=== PATIENT | male | born 1965 | race Caucasian/White ===

== ENCOUNTER 2024-03-27 13:01 | Observation (INO) | payer OTHER, SELFPAY ==
[2024-03-27] MEDS ORDERED: Mag-Al 1200 mg/1200 mg/30 ML UDCUP ONE (13:41)
[2024-03-27] MEDS ORDERED: Lidocaine Viscous Sol 2% 15 ml UD Cup ONE (13:41)
[2024-03-27 13:56] LABS: #Basophils Less than 0.03 10x3/uL (0.0-0.2); #Eosinophils Less than 0.03 10x3/uL (0.0-0.7); %Basophils 0.3 % (0.0-1.0); %Eosinophils 0.3 % (0.0-10.0); %Lymphocytes 9.4 % (21.0-51.0); %Monocytes 5.9 % (0.0-10.0); %Neutrophils 83.6 % (42.0-75.0); Hematocrit 43.8 % (42.0-52.0); Hemoglobin 15.3 g/dL (14.0-18.0); Mean Corpuscular HGB CONC 34.9 g/dL (32.0-36.0); Mean Corpuscular Hemoglobin 32.6 pg (27.0-31.0); Mean Corpuscular Volume 93.2 fL (78.0-98.0); Mean Platelet Volume 9.4 fL (7.4-10.4); Platelet Count 257 10x3/uL (130-400); RBC Distribution Width 12.5 % (11.5-14.5)
[2024-03-27 14:11] LABS: ALT (SGPT) 23 U/L (8-55); AST (SGOT) 17 U/L (5-34); Albumin 3.9 g/dL (3.5-5.0); Alkaline Phosphatase 62 U/L (40-110); Anion Gap 14 mmol/L (10-20); BUN (Urea Nitrogen) 17 mg/dL (8.4-25.7); Bilirubin, Total 0.4 mg/dL (0.2-1.2); Calc. Creatinine Clearance 0 mL/min (70-130); Calcium 9.6 mg/dL (7.8-10.44); Carbon Dioxide 22 mmol/L (22-29); Chloride 104 mmol/L (98-107); Estimated GFR 77; Globulin 3.6 g/dL (2.4-3.5); Glucose 130 mg/dL (70-105); Lipase 17 U/L (8-78); Potassium 3.6 mmol/L (3.5-5.1); Protein, Total 7.5 g/dL (6.0-8.3); Sodium 136 mmol/L (136-145)
[2024-03-27 14:16] LABS: Troponin I Less than 0.010 ng/mL (< 0.028)
[2024-03-27 18:28] LABS: Troponin I Less than 0.010 ng/mL (< 0.028)
[2024-03-27 20:02] LABS: Troponin I Less than 0.010 ng/mL (< 0.028)
[2024-03-27] MEDS ORDERED: Nitroglycerin 0.4 MG TAB (25 Tab Bottle) SL PRN (20:44)
[2024-03-27] MEDS: Aspirin Chewable 81 MG TAB PO SCH (21:36)
[2024-03-28 04:19] VITALS: BMI 31.4
[2024-03-28] MEDS: Aspirin Chewable 81 MG TAB PO SCH (08:22)
[2024-03-28] MEDS: Enoxaparin 40 MG (0.4 mL) SYRINGE SC SCH (08:22)
[2024-03-28] MEDS ORDERED: hydrALAZINE 20 MG/ML VIAL SLOW IVP PRN (08:37)
[2024-03-28] MEDS ORDERED: Regadenoson 0.4 MG/5 ML SYRINGE ONE (11:55)
[2024-03-28 12:28] VITALS: TEMP 97.9
[2024-03-28 14:01] VITALS: BP 156/82
== END 2024-03-28 15:15 | disposition home or self-care (01) ==
LOC: ERS 13:01 → 2NO 17:11
PROVIDERS: ADMIT Internal Medicine; ATTEND Internal Medicine
DX: R07.89 Other chest pain (principal); F10.90 Alcohol use, unspecified, uncomplicated; Y90.9 Presence of alcohol in blood, level not specified
CPT/HCPCS: 36415; 71045; 78452; 80053; 83690; 84484; 85025; 93005; 93017; 94760; 96372; A9502; G0378; J1650; J2785